=== PATIENT | female | born 1960 | race Caucasian/White ===

== ENCOUNTER 2016-10-27 16:40 | Emergency (ER) | payer SELFPAY ==
[2016-10-27 16:49] VITALS: TEMP 98; O2SAT 95
--- NOTE | 2016-10-27 17:01 | ED.PDOC ---
History of Present Illness - General Chief Complaint: Upper Extremity Injury Stated Complaint: left wrist pain Time Seen by Provider: 10/27/16 16:56 Source: patient, RN notes reviewed, Vital Signs reviewed Exam Limitations: no limitations - History of Present Illness Initial Comments: Patient fell down some steps and thinks her L wrist is broken. She is having pain with a deformity. Denies other injuries. Occurred: just prior to arrival Pain - Upper Extremity: severe: Wrist, left Method of Injury: fell Improving Factors: immobilization Worsening Factors: movement Allergies/Adverse Reactions: Allergies Acetaminophen [From Lorcet 10650] Allergy (Verified 10/27/16 16:49) Hydrocodone [From Lorcet 10650] Allergy (Verified 10/27/16 16:49) Home Medications: Ambulatory Orders Citalopram Hydrobromide 20 mg PO DAILY 10/27/16 Tramadol HCl 50 mg PO Q6HR PRN #15 tab 10/27/16 Review of Systems - Review of Systems Constitutional: States: no symptoms reported Respiratory: States: no symptoms reported Cardiology: States: no symptoms reported Musculoskeletal: States: see HPI, joint pain - L wrist, joint swelling - L wrist Skin: States: no symptoms reported All other Systems: No Change from Baseline Past Medical History (General) - Patient Medical History Hx Congestive Heart Failure: No Hx Diabetes: No Surgical History: appendectomy, Hysterectomy - Vaccination History Hx Influenza Vaccination: No - Social History Hx Tobacco Use: Yes Family Medical History - Family History Mother Family History: Unknown Living Status: Unknown Physical Exam - Physical Exam General Appearance: Agitated, Alert, Well Developed, Well Groomed, Well Hydrated , Well Nourished, Other - In obvious pain Cardiovascular/Respiratory: normal peripheral pulses Elbow/Forearm Exam: bone tenderness - over L radial head, limited ROM - due to pain, pain, soft tissue tenderness Wrist Exam: bone tenderness - L wrist, deformity - L wrist, limited ROM - Due to pain but moves all fingers with brisk capillary refill in all fingers and normal sensation, pain, soft tissue tenderness, swelling Hand Exam: normal inspection, non-tender, no evidence of injury, limited ROM - due to pain in wrist Neuro/Tendon: normal sensation, normal motor functions, no evidence tendon injury Mental Status: alert, oriented x 3 Skin Exam: normal color, warm/dry Comments: Vital Signs - 24 hr 10/27/16 16:47 Temperature 98 F Pulse Rate [ 105 H Right Brachial] Respiratory 20 Rate Blood Pressure 168/95 [Right Arm] O2 Sat by Pulse 95 Oximetry Progress - Progress Progress: 10/27/16 17:03 Patient refused pain medications. 10/27/16 17:15 Patient now would like pain medications. Since she is allergic to hydrocodone will give Tramadol which she reports she can take without difficulty. - EKG/XRAY/CT XRAY: L wrist:Obliqe distal radius fracture extending into joint space - No fracture Procedures - Splinting Left Wrist Hand-Made Type: fiberglass Splint: volar Pre-Proc Neuro Vasc Exam: normal Post-Proc Neuro Vasc Exam: normal Departure - Departure Clinical Impression: Distal radius fracture, left Qualifiers: Encounter type: initial encounter Fracture type: closed Fracture morphology: other intra-articular Qualified Code(s): S52.572A - Other intraarticular fracture of lower end of left radius, initial encounter for closed fracture Time of Disposition: 17:28 Disposition: Discharge to Home or Self Care Condition: Good Departure Forms: ED Discharge - Pt. Copy, Patient Portal Self Enrollment Instructions: DI for Wrist Fracture Diet: resume usual diet Activity: no pushing/pulling with affected limb Prescriptions: Tramadol HCl 50 mg PO Q6HR PRN #15 tab PRN Reason: Moderate To Severe Pain Home Medications: Ambulatory Orders Citalopram Hydrobromide 20 mg PO DAILY 10/27/16 Tramadol HCl 50 mg PO Q6HR PRN #15 tab 10/27/16 Additional Instructions: Schedule follow up with Orthopedic surgeon in [place] in 3-5 days Do not remove splint until follow up with Ortho
[2016-10-27] MEDS ORDERED: traMADol HCL 50 MG TAB PO ONE (17:16)
--- NOTE | 2016-10-27 17:21 | RAD ---
EXAM: UNILATERAL ELBOW 3 VIEWS DATE: 11/06/2016 INDICATION: MAIN. COMPARISON: None available. TECHNIQUE: AP, lateral and oblique radiographs of the left elbow were performed. FINDINGS: No fracture, dislocation or other acute bony abnormality is identified. There is no elbow joint effusion. No soft tissue abnormality is identified. IMPRESSION: No acute fracture. Please see separately dictated report of wrist x-ray. Electronically signed by: Tristan Ulrich MD 10/27/2016 5:20 PM CDT
--- NOTE | 2016-10-27 17:26 | RAD ---
Wrist x-ray three views or more Clinical indication: Pain and swelling IMPRESSION: None TECHNIQUE: The 3views of the wrist show no fractures or dislocations. There is diffuse swelling of the wrist and forearm. There is cortical disruption of the medial aspect of the radius distally with an oblique lucency noted through the distal shaft. No dislocation. The carpal bones appear normal alignment. IMPRESSION: Minimally displaced, Intra-articular, oblique fracture of the left distal radius. Findings discussed with Dr. Shields over the phone by Dr. Ulrich on 10/27/2016 at 5:25 PM Electronically signed by: Tristan Ulrich MD 10/27/2016 5:25 PM CDT
[2016-10-27 17:47] VITALS: BP 172/105
== END 2016-10-27 17:54 | disposition home or self-care (01) ==
LOC: ER 16:40
DX: S52.572A Other intraarticular fracture of lower end of left radius, initial encounter for closed fracture (principal); Z87.891 Personal history of nicotine dependence; Z88.6 Allergy status to analgesic agent; W10.9XXA Fall (on) (from) unspecified stairs and steps, initial encounter

== ENCOUNTER 2018-09-03 13:24 | Emergency (ER) | payer OTHER ==
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
[2018-09-03] MEDS ORDERED: KETOROLAC TROMETHAMINE INJ 30 MG/ML VIAL IM ONE (16:15)
[2018-09-03] MEDS ORDERED: ORPHENADRINE CITRATE 30 MG/ML AMP IM ONE (16:15)
[2018-09-03] MEDS ORDERED: BACLOFEN 10 MG TAB PO ONE (16:28)
--- NOTE | 2018-09-03 16:40 | RAD ---
EXAM: Lumbar Spine 3 Views CLINICAL INDICATION: Low back pain COMPARISON: There is no previous study for comparison. FINDINGS: Three views of the lumbar spine reveal no fracture, compression deformity, or subluxation. There is moderate disc space narrowing at the L4-L5 level. Otherwise the intervertebral disc spaces are preserved. No focal bone lesions are seen. IMPRESSION: Moderate degenerative disc disease at the L4-L5 level. Electronically signed by: Juan Carlos Ernandez MD 09/03/2018 4:37 PM CDT
[2018-09-03 17:05] VITALS: BP 170/87; TEMP 96.1; O2SAT 97
== END 2018-09-03 17:03 | disposition home or self-care (01) ==
LOC: ER 13:24
DX: M54.5 Low back pain (principal); M47.817 Spondylosis without myelopathy or radiculopathy, lumbosacral region; E11.9 Type 2 diabetes mellitus without complications; V49.59XA Passenger injured in collision with other motor vehicles in traffic accident, initial encounter; Y92.410 Unspecified street and highway as the place of occurrence of the external cause; Z87.891 Personal history of nicotine dependence; Z86.73 Personal history of transient ischemic attack (TIA), and cerebral infarction without residual deficits; Z79.899 Other long term (current) drug therapy; Z88.5 Allergy status to narcotic agent; Z88.6 Allergy status to analgesic agent
CPT/HCPCS: 72100; J1885

== ENCOUNTER → 2019-02-24 | Outpatient (CLI) | payer OTHER ==
--- NOTE | 2019-02-25 12:17 | US ---
EXAM DESCRIPTION: Breast,Bilateral (accession [id number]), Diagnostic Mammo,Bilateral (accession [id number]): Ultrasound CLINICAL HISTORY: 58 yearsFemaleBREAST LUMP felt on the upper anterior skin surface one month ago. reel tender. No personal or family history of breast cancer. Sister with ovarian cancer unknown age. Childbirth. Hysterectomy 35+ years. Lifetime risk of developing breast cancer (Tyrer-Cuzick model)(%): 6.4. COMPARISON: None available. TECHNIQUE: Bilateral LM, CC, and MLO projection full-field images, digital mammographic tomosynthesis technique. Bilateral 2-D digital full-field images. LM only. CAD not available . Transcutaneous scanning of the bilateral breasts utilizing carlson-scale modes. Scanning performed by the parquet floor layer and Dr. Ortiz. FINDINGS: The breast parenchymal density pattern is: Scattered areas of fibroglandular density. No skin thickening or nipple retraction focal asymmetry at the 9:00-9:30 position of the middle third of the left breast, which is lateral to the skin marker, and 7 cm from the nipple. No microcalcifications. Focal asymmetry middle third of the right breast, at 3:00, near the posterior nipple line, and 6 cm from the nipple. No associated microcalcifications. Well-defined nodule, at 8 o'clock position posterior third right breast 8 cm from the nipple. Ultrasound: Scanning of the bilateral regions of interest as described in the FINDINGS. Right breast region of interest mostly fatty echotexture with minimal fibroglandular tissues. No dominant solid mass or distinct cyst. No parenchymal edema or large calcifications, or skin changes. Left breast region of interest mostly fatty echotexture with minimal fibroglandular tissues. No abnormal findings similar to the right breast. IMPRESSION: Benign exam. BIRAD CATEGORY: 2 BENIGN FINDINGS. RECOMMENDATIONS: FOLLOW UP: Routine digital bilateral mammographic screening, one year interval from February 2019. Written communication explaining the IMPRESSION and follow-up, will be mailed to the patient and referring health care provider. The FINDINGS and the FOLLOW-UP plan were reviewed in person with the patient after the examination. According to the [employer], yearly mammograms are recommended starting at age 40 and continuing as long as a woman is in good health. Any breast change noted on a breast self-exam should be reported promptly to the patient's healthcare provider. Breast MRI is recommended for women with an approximately 20-25% or greater lifetime risk of breast cancer, including women with a strong family history of breast or ovarian cancer and women who have been treated for Hodgkin's disease. A negative mammographic report should not delay tissue diagnosis in patients with significant clinical history or physical findings. Extremely dense breast tissue limits the sensitivity of digital mammography. Electronically signed by: Jason Ortiz MD 02/25/2019 12:15 PM CDT
== END ==
LOC: MAMMO 13:30
PROVIDERS: ATTEND Family Medicine
DX: N63.20 Unspecified lump in the left breast, unspecified quadrant (principal); N64.4 Mastodynia

== ENCOUNTER → 2020-06-27 | Outpatient (CLI) | payer OTHER ==
--- NOTE | 2020-06-28 16:44 | MAM ---
EXAM DESCRIPTION: 3D Diagnostic, Bilateral: Digital Mammography CLINICAL HISTORY: 59 yearsFemaleBREAST LUMP . Bilateral breast tenderness is chronic. Mother and female sibling with ovarian cancer. No family history of breast cancer. Menarche age 12. Childbirth age 21. Menopause age 38. No HRT. Lifetime risk of developing breast cancer (Tyrer-Cuzick model) percentage is 6.3. COMPARISON: Bilateral diagnostic breast mammography February 2019 with directed bilateral breast ultrasound... TECHNIQUE: Bilateral LM, CC, and MLO projection full-field images, digital mammographic tomosynthesis technique. Bilateral 2-D digital full-field MLO images. LM, CC, and MLO projections. CAD 2-D images FINDINGS: The breast parenchymal density pattern is: Scattered areas of fibroglandular density. Solitary microcalcifications more numerous in the right breast. Intramammary nodes and axillary nodes. Stable focal asymmetry central right breast, middle third. No skin thickening or nipple retraction No new focal, stellate mass or density, focal asymmetry , and no suspicious microcalcifications bilaterally. Stable mammograms compared to prior study. IMPRESSION: Benign exam. BIRAD CATEGORY: 2 BENIGN FINDINGS. RECOMMENDATIONS: FOLLOW UP: Routine digital bilateral mammographic screening, one year interval from June 2019. Written communication explaining the IMPRESSION and follow-up, will be mailed to the patient and referring health care provider. According to the [employer], yearly mammograms are recommended starting at age 40 and continuing as long as a woman is in good health. Any breast change noted on a breast self-exam should be reported promptly to the patient's healthcare provider. Breast MRI is recommended for women with an approximately 20-25% or greater lifetime risk of breast cancer, including women with a strong family history of breast or ovarian cancer and women who have been treated for Hodgkin's disease. A negative mammographic report should not delay tissue diagnosis in patients with significant clinical history or physical findings. Extremely dense breast tissue limits the sensitivity of digital mammography. Electronically signed by: Jason Ortiz MD 06/28/2020 4:43 PM [facility]
== END ==
LOC: MAMMO 09:35
PROVIDERS: ATTEND Family Medicine
DX: N63.22 Unspecified lump in the left breast, upper inner quadrant (principal)
CPT/HCPCS: 77066; G0279